=== PATIENT | male | born 1980 | race African-American/Black ===

== ENCOUNTER 2017-02-08 12:10 | Emergency (ER) | payer MEDICAID | END 2017-02-08 13:26 | disposition home or self-care (01) | LOC: D.ER 12:10 | DX: S16.1XXA Strain of muscle, fascia and tendon at neck level, initial encounter (principal); X58.XXXA Exposure to other specified factors, initial encounter; Y93.89 Activity, other specified; Y92.89 Other specified places as the place of occurrence of the external cause; M62.838 Other muscle spasm; F17.200 Nicotine dependence, unspecified, uncomplicated ==